=== PATIENT | female | born 1960 | race Caucasian/White ===

== ENCOUNTER 2022-06-20 08:38 | Emergency (ER) | payer OTHER ==
[~2022-06-20] VITALS: Ht 162.6 cm; Wt 70.0 kg
[2022-06-20] VITALS (13 sets, daily range): BP systolic 138–175; BP diastolic 64–103
[2022-06-20] MEDS ORDERED: DILTIAZEM HYDR240 M1 PO (08:50)
[2022-06-20] MEDS ORDERED: KAPSPARGO SPRIN25 MG PO (08:51)
[2022-06-20] MEDS ORDERED: FLUOXETINE40 MG PO (08:53)
[2022-06-20] MEDS ORDERED: MELOXICAM15 MG PO (08:54)
[2022-06-20] MEDS ORDERED: XANAX0.25 MG PO (08:55)
[2022-06-20] MEDS ORDERED: CRESTOR20 MG PO (08:56)
[2022-06-20] MEDS ORDERED: ASPIRIN EC LOW81 MG PO (08:57)
[2022-06-20 09:32] LABS: ALBUMIN 4.7 g/dL (3.2-5.0); ALKALINE PHOSPHATASE 111 u/l (38-126); ANION GAP 12 (6-22 (CALC)); BILIRUBIN, TOTAL 0.3 mg/dL (0.0-1.4); BUN 14 mg/dL (8-23); BUN/CREATININE RATIO 19 (12-20 (CALC)); CARBON DIOXIDE 28 mmol/l (22-30); CHLORIDE 103 mmol/l (95-108); CREATININE 0.7 mg/dL (0.5-1.0); ETHYL ALCOHOL 0 mg/dl (0-30); GFR FOR AFR.AMER. > 60 ML/MIN (>=60 (CALC)); GFR OTHER RACES > 60 ML/MIN (>=60 (CALC)); HEMATOCRIT 42.5 % (37.0-47.0); HEMOGLOBIN 14.7 g/dl (12.0-16.0); IMMATURE GRANULOCYTES 0.4 % (0.0-5.0); MEAN CORPUSCULAR HGB 31.1 pG CALC (26.0-32.0); MEAN CORPUSCULAR HGB CONC 34.6 g/dL CAL (32.0-36.0); NEUT# 7.85 thou/uL (2.00-7.15); POTASSIUM 3.7 mmol/l (3.5-5.1); RED BLOOD COUNT 4.72 mill/uL (4.20-5.60); RED CELL DISTRI WIDTH 12.5 % (11.5-15.5); SGOT/AST 29 u/l (9-36); SODIUM 139 mmol/l (137-146); TOTAL PROTEIN 6.9 g/dL (6.3-8.2)
[2022-06-20] MEDS ORDERED: TRAMADOL HYDROC50 M1 PO (11:01)
[2022-06-20 11:51] LABS: URINE BILIRUBIN - DIPSTICK NEGATIVE (NEGATIVE); URINE BLOOD DIPSTICK NEGATIVE (NEGATIVE); URINE COLOR YELLOW; URINE GLUCOSE - DIPSTICK NEGATIVE (NEGATIVE); URINE KETONE NEGATIVE (NEGATIVE); URINE LEUK ESTERASE NEGATIVE (NEGATIVE); URINE PROTEIN - DIPSTICK TRACE mg/dL (NEG-TRACE); URINE SPECIFIC GRAVITY 1.015; URINE UROBILINOGEN - DIPSTICK 0.2 E.U./dL (0.2)
[2022-06-20 11:54] LABS: URINE NITRITE - DIPSTICK NEGATIVE (Negative)
== END 2022-06-20 11:47 | disposition home or self-care (01) | DRG 999 ==
LOC: ED 08:38
PROVIDERS: Family Medicine
DX: M25.331 Other instability, right wrist (principal); S42.401A Unspecified fracture of lower end of right humerus, initial encounter for closed fracture; W01.0XXA Fall on same level from slipping, tripping and stumbling without subsequent striking against object, initial encounter; I10 Essential (primary) hypertension; F41.8 Other specified anxiety disorders